=== PATIENT | female | born 1970 | race Caucasian/White ===

== ENCOUNTER 2020-02-25 23:41 | Emergency (ER) | payer BC, MEDICAID ==
[~2020-02-25] VITALS: Ht 152.4 cm; Wt 72.6 kg
[2020-02-25 23:42] VITALS: BP 110/71
[2020-02-25] MEDS ORDERED: ALBUTEROL HFA MDI 90 MCG/ACTUATION 8 GM INH ONE (23:45)
[2020-02-25] MEDS ORDERED: BENZONATATE 100 MG CAPLF PO PRN (23:45)
--- NOTE | 2020-02-25 23:45 | NUR ---
PT AMBULATED TO CHAIR C
--- NOTE | 2020-02-26 | NUR ---
PT MOVED TO BED #4
--- NOTE | 2020-02-26 00:15 | NUR ---
PT ASSESSMENT COMPLETE. PT PLACED IN GOWN. SAFETY MEASURES IN PLACE. 02 SATURATION IS 98% ROOM AIR. WILL CONTINUE TO MONITOR.
[2020-02-26 00:21] LABS: BASOPHILS # (AUTO) 0.1 K/uL (0.00-0.22); BASOPHILS % (AUTO) 0.9 % (0.0-2.0); EOSINOPHILS # (AUTO) 0.2 K/uL (0-0.4); EOSINOPHILS % (AUTO) 2.4 % (0.0-4.0); HEMATOCRIT 38.9 % (36-48); HEMOGLOBIN 12.8 g/dL (12.0-16.0); LYMPHOCYTES # (AUTO) 2.4 K/uL (2.5-16.5); LYMPHOCYTES % (AUTO) 30.7 % (20.5-51.1); MEAN CORPUSCULAR HEMOGLOBIN 27 pg (27-31); MEAN CORPUSCULAR HGB CONC 33 g/dL (33-37); MONOCYTES # (AUTO) 0.6 K/uL (0.8-1.0); MONOCYTES % (AUTO) 7.7 % (1.7-9.3); NEUTROPHILS # (AUTO) 4.5 K/uL (1.8-7.7); NEUTROPHILS % (AUTO) 58.3 % (42.2-75.2); PLATELET COUNT (AUTO) 208 K/uL (140-450); RED CELL DISTRIBUTION WIDTH 15.7 % (11.6-13.7); WHITE BLOOD COUNT (AUTO) 7.8 K/uL (4.8-10.8)
--- NOTE | 2020-02-26 00:27 | NUR ---
obtained consent for ct with contrast.
[2020-02-26 00:43] LABS: ALBUMIN 4.1 g/dL (3.4-5.0); ANION GAP 14.4 (8-16); CARBON DIOXIDE 28.3 mmol/L (21-32); CREATININE 0.9 mg/dL (0.6-1.3); POTASSIUM 3.7 mmol/L (3.5-5.1); TOTAL BILIRUBIN 0.4 mg/dL (0.0-1.0)
[2020-02-26] MEDS ORDERED: NACL 0.9% 500 ML IV ONE (01:00)
--- NOTE | 2020-02-26 01:07 | NUR ---
PT TAKEN TO CT VIA WHEELCHAIR
--- NOTE | 2020-02-26 01:28 | NUR ---
pt returned from ct via wheelchair
--- NOTE | 2020-02-26 02:18 | NUR ---
pt resting comfortably in bed. pt appears to be in no respiratory distress at this time. 97% O2 sat on room air. equal chest rise and fall. bed locked and in lowest position. side rails x1.
[2020-02-26 02:52] VITALS: BP 100/63
--- NOTE | 2020-02-26 02:52 | NUR ---
Patient discharged with v/s stable. Written and verbal after care instructions given and explained. Patient alert, oriented and verbalized understanding of instructions. Ambulatory with steady gait. All questions addressed prior to discharge. ID band removed. Patient advised to follow up with PMD. Rx of ALBUTEROL, CARLOS DOE given. Patient educated on indication of medication including possible reaction and side effects. Opportunity to ask questions provided and answered.
== END 2020-02-26 02:52 | disposition home or self-care (01) ==
LOC: MED 23:41 → EDBD 23:41 → MED 02-26 02:52
DX: J06.9 Acute upper respiratory infection, unspecified (principal)
CPT/HCPCS: 36415; 71045; 71275; 80053; 81025; 85025; 94664; 99285; J7030; Q0092; Q9967